=== PATIENT | male | born 1960 | race Caucasian/White ===

== ENCOUNTER 2020-02-03 16:37 | Emergency (ER) | payer OTHER ==
[2020-02-03 16:50] VITALS: BMI 25.9
[2020-02-03 17:29] LABS: BASO % 0.5 % (0-2.0); EOS % 2.4 % (0-4.5); HEMATOCRIT 37.5 % (35.4-49); HEMOGLOBIN 12.3 GM/dL (11.7-16.9); LYMPH % 30.6 % (8-40); MCH 28.5 pg (25.7-33.7); MCHC 32.8 g/dl (32.0-35.9); MEAN CELL VOLUME 86.9 fl (80-96); MEAN PLT VOLUME 8.6 fl (7.5-11.1); MONO % 6.9 % (3.8-10.2); NEUT % 59.6 % (42.8-82.8); PLATELET COUNT 193 K/MM3 (134-434); RBC 4.31 M/mm3 (4.00-5.60); RDW 13.7 % (11.9-15.9); WHITE BLOOD COUNT 6.8 K/mm3 (4.0-10.0)
[2020-02-03] MEDS ORDERED: ASPIRIN 81 MG CHEWABLE TABLETS PO ONE (17:30)
[2020-02-03] MEDS ORDERED: ACETAMINOPHEN 1000 MG/100 ML VIAL (NON FORMULARY) IVPB ONE (17:30)
[2020-02-03] MEDS ORDERED: ACETAMINOPHEN INJECTION 100 ML IVPB ONE (17:39)
[2020-02-03] MEDS ORDERED: ASPIRIN 81 MG CHEWABLE TABLETS ONE (17:39)
[2020-02-03 17:55] LABS: INR 1.05 (0.83-1.09); PROTHROMBIN TIME (PATIENT) 12.4 SEC (9.7-13.0)
[2020-02-03] MEDS ORDERED: ISOSORBIDE MONONITRATE 30 MG TAB.SR.24H (FP) PO SCH (18:00)
[2020-02-03] MEDS ORDERED: ISOSORBIDE MONONITRATE 60 MG TAB.SR.24H (FP) PO ONE (18:11)
[2020-02-03 18:13] LABS: ALBUMIN 3.8 g/dl (3.4-5.0); BILIRUBIN,TOTAL 0.3 mg/dL (0.2-1); BLOOD UREA NITROGEN 14.5 mg/dL (7-18); CALCIUM 8.5 mg/dL (8.5-10.1); POTASSIUM 3.6 mmol/L (3.5-5.1)
[2020-02-03 18:19] VITALS: BP 119/73; PULSE 67; TEMP 98
== END 2020-02-03 22:06 | disposition home or self-care (01) ==
LOC: JER 16:37
DX: R07.9 Chest pain, unspecified (principal)
CPT/HCPCS: 36415; 71045-TC-FY; 80053; 80061; 82550; 82553; 83690; 83721; 83735; 84484; 85025; 85610; 93005; 93010; 99285-25

== ENCOUNTER 2020-02-07 00:31 | Inpatient (IN) | payer OTHER ==
--- NOTE | 2020-02-07 00:41 | PDOC ---
History of Present Illness - General Stated Complaint: CHEST PAIN Time Seen by Provider: 02/07/20 00:41 History Source: Patient - History of Present Illness Initial Comments: 02/07/20 04:49 59M w/hx CAD, cardiac stenting on plavix, stable angina p/w acute onset chest pain while at rest. He reports sitting in front of the TV when he began to appreciate 5/10 midsternal chest pain, non-radiating, described as an ache. His usual pain with angina occurs with exercise or activity. He reports taking x1 sublingual nitro with symptom onset approx 2230, and another 1 hour later at 2330. He denies any pain at this time. He denies sob, vision changes, n/v/abdominal pain, confusion, or vision changes. 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 Cardiology: Dr. Hale Past History - Medical History Allergies/Adverse Reactions: Allergies Allergy/AdvReac Type Severity Reaction Status Date / Time No Known Allergies Allergy Verified 02/07/20 00:48 Home Medications: Ambulatory Orders Aspirin [ASA -] 81 mg PO DAILY 02/07/20 Atorvastatin Ca [Lipitor] 80 mg PO HS 02/07/20 Clopidogrel Bisulfate [Clopidogrel] 75 mg PO DAILY 02/07/20 Colchicine [Mitigare] 0.6 mg PO DAILY 02/07/20 Metoprolol Tartrate [Lopressor -] 12.5 mg PO DAILY 02/07/20 Nitroglycerin Sublingual [Nitrostat -] 0.4 mg SL PRN PRN 02/07/20 Cardiac Disorders: Yes (stent) COPD: No HTN: Yes Hypercholesterolemia: Yes - Surgical History Lung Surgery: No - Immunization History Immunization Up to Date: No - Psycho-Social/Smoking History Smoking Status: No Smoking History: Never smoked Have you smoked in the past 12 months: No Number of Cigarettes Smoked Daily: 0 Review of Systems - Review of Systems Able to Perform ROS?: Yes Comments:: 02/07/20 04:55 GENERAL/CONSTITUTIONAL: No fever or chills. No weakness. HEAD, EYES, EARS, NOSE AND THROAT: No change in vision. No ear pain or discharge. No sore throat. CARDIOVASCULAR: No chest pain or shortness of breath RESPIRATORY: No cough, wheezing, or hemoptysis. GASTROINTESTINAL: No nausea, vomiting, diarrhea or constipation. GENITOURINARY: No dysuria, frequency, or change in urination. MUSCULOSKELETAL: No joint or muscle swelling or pain. No neck or back pain. SKIN: No rash NEUROLOGIC: No headache, vertigo, loss of consciousness, or change in strength/sensation. ENDOCRINE: No increased thirst. No abnormal weight change HEMATOLOGIC/LYMPHATIC: No anemia, easy bleeding, or history of blood clots. ALLERGIC/IMMUNOLOGIC: No hives or skin allergy. *Physical Exam - Physical Exam 02/07/20 04:56 GENERAL: Awake, alert, and fully oriented, in no acute distress HEAD: No signs of trauma, normocephalic, atraumatic EYES: PERRLA, EOMI, sclera anicteric, conjunctiva clear ENT: Auricles normal inspection, hearing grossly normal, nares patent, oropharynx clear without exudates. Moist mucosa NECK: Normal ROM, supple, no lymphadenopathy, JVD, or masses LUNGS: No distress, speaks full sentences, clear to auscultation bilaterally HEART: Regular rate and rhythm, normal S1 and S2, no murmurs, rubs or gallops, peripheral pulses normal and equal bilaterally. ABDOMEN: Soft, nontender, normoactive bowel sounds. No guarding, no rebound. No masses EXTREMITIES : Normal inspection, Normal range of motion, no edema. No clubbing or cyanosis NEUROLOGICAL: Cranial nerves II through XII grossly intact. Normal speech, normal gait, no focal sensorimotor deficits SKIN: Warm, Dry, normal turgor, no rashes or lesions noted Heart Score/ECG Review - History History: Moderately suspicious - Electrocardiogram EKG: Normal - Age Age: 45-65 - Risk Factors Risk Factors Heart Score: Yes Positive family hx of cardiac disease Based on the list above the patient has:: 1-2 risk factors - Troponin Troponin: </= normal limit - Score Heart Score - Total: 3 ED Treatment Course - LABORATORY CBC & Chemistry Diagram: 02/07/20 01:10 02/07/20 01:10 Medical Decision Making - Medical Decision Making 02/07/20 04:58 59M w/hx angina, CAD s/p stenting on plavix p/w acute onset chest pain while at rest. Ddx unstable angina vs other ACS. Plan: CBC CMP EKG CXR Cardiac profile ASA Cardiology consult Dispo: Pending --- Case discussed with Dr. Montes. Plan for repeat troponin, evaluation for tele obs admission. Discharge - Discharge Information Problems reviewed: Yes Clinical Impression/Diagnosis: Chest pain Condition: Stable - Admission Yes - Follow up/Referral Referrals: Gaurav Chun [Primary Care Provider] - - Patient Discharge Instructions - Post Discharge Activity
[2020-02-07 00:48] VITALS: BMI 25.8
[2020-02-07 01:21] LABS: BASO % 0.8 % (0-2.0); EOS % 6.8 % (0-4.5); HEMATOCRIT 35.5 % (35.4-49); HEMOGLOBIN 11.9 GM/dL (11.7-16.9); LYMPH % 40.2 % (8-40); MCH 28.9 pg (25.7-33.7); MCHC 33.4 g/dl (32.0-35.9); MEAN CELL VOLUME 86.4 fl (80-96); MONO % 9.5 % (3.8-10.2); NEUT % 42.7 % (42.8-82.8); PLATELET COUNT 161 K/MM3 (134-434); RBC 4.11 M/mm3 (4.00-5.60); RDW 13.8 % (11.9-15.9); WHITE BLOOD COUNT 4.3 K/mm3 (4.0-10.0)
[2020-02-07 01:55] LABS: ALBUMIN 3.3 g/dl (3.4-5.0); ALK PHOS 75 U/L (45-117); ANION GAP 6 MMOL/L (8-16); BILIRUBIN,TOTAL 0.2 mg/dL (0.2-1); BLOOD UREA NITROGEN 12.9 mg/dL (7-18); CALCIUM 8.1 mg/dL (8.5-10.1); CHLORIDE 107 mmol/L (98-107); CO2 27 mmol/L (21-32); CREATININE 1.1 mg/dL (0.55-1.3); GLUCOSE,RANDOM 107 mg/dL (74-106); INR 1.02 (0.83-1.09); POTASSIUM 3.5 mmol/L (3.5-5.1); SGOT/AST 30 U/L (15-37); SGPT/ALT 46 U/L (13-61); SODIUM 140 mmol/L (136-145); TOT PROT 6.4 g/dl (6.4-8.2)
[2020-02-07 01:58] LABS: ACTIVATED PTT 26.6 SECONDS (25.2-36.5)
--- NOTE | 2020-02-07 02:24 | PDOC ---
Documentation entered by Julissa Bautista SCRIBE, acting as scribe for Radha Giles MD. Radha Giles MD: This documentation has been prepared by the marleenibeMichele Ana, SCRIBE, under my direction and personally reviewed by me in its entirety. I confirm that the documentation accurately reflects all work, treatment, procedures, and medical decision making performed by me. Attending Attestation - Resident Resident Name: MichelleAl - ED Attending Attestation I have performed the following: I have examined & evaluated the patient, The case was reviewed & discussed with the resident, I agree w/resident's findings & plan, Exceptions are as noted - HPI HPI: 02/07/20 00:41 Patient is a 59 year old male with a significant past medical history of HTN, GOUT, HLD, and RI with recent cardiac stenting who presents to the ED with chest pain since around 10:30pm tonight. Patient stated he was watching TV when the pain occurred in the center of his chest (pain does not move), he felt "weird", and his pressure started going up. Patient disclosed that approximately 10:50pm he took a Nitril pill, felt a bit alleviated, went to sleep, woke up around midnight with worsened pain, took another Nitril, then came to the ER. Patient stated he is on various medications and that he has had similar episodes like this recently - was in the ER on Wednesday. Patient denies: any previous heart attacks, racing heart, nausea, vomiting, change of vision, diarrhea. PCP: Dr. Chun Chemist Internship: Dr. Hale Allergies: NKDA - Physicial Exam PE: 02/07/20 02:24 wnwd 59 yo male experienced chest pain at rest tonight 02/07/20 02:25 head ncat neck supple lungs cta b/l cvs [id number] abdomen nontender skin warm and dry neuro axox3, ambulatory - Medical Decision Making 02/07/20 02:26 plan OBS telemetry Discharge - Discharge Information Problems reviewed: Yes Clinical Impression/Diagnosis: Chest pain Condition: Improved Disposition: HOME - Follow up/Referral - Patient Discharge Instructions - Post Discharge Activity
[2020-02-07] MEDS ORDERED: ASPIRIN 81 MG CHEWABLE TABLETS PO ONE (02:25)
[2020-02-07] MEDS ORDERED: ASPIRIN COATED 81 MG TABLET.EC ONE ×2 (02:30→09:13)
--- NOTE | 2020-02-07 06:22 | PN ---
Teaching Attending Note Name of Resident: Florentino Arce ATTENDING PHYSICIAN STATEMENT I saw and evaluated the patient. I reviewed the resident's note and discussed the case with the resident. I agree with the resident's findings and plan as documented. SUBJECTIVE: 59 y/o M w/PMHx of HTN, Gout, HLD and MT S/P PCI in 10/2019 on DAPT and compl iant. OBJECTIVE: VSS Card0 S1 S2 no m/r/g Ext moving all ext no edema or rashes Lungs CTA all lung parker Neuro non focal neuro exam Abd normoactive BS non tender soft Labs: Trop x 2 neg Otherwise grossly unremarkable ASSESSMENT AND PLAN: 59 y/o M w/PMHx of HTN, Gout, HLD and MT S/P PCI in 10/2019 on DAPT and compliant came in w/ chest pain at 10 pm and 12 am not relieved by nitro. Angina in setting of recent PCI ASA 81 mg daily Plavix 75 mg daily Tele monitoring EKG and Trop x3 q 4-6 hr Cardio consulted Metoprolol per home dose Add Imdur 30 mg daily NG 0.4 mg Q 5 min PRN C/P x 3 doses max HTN/HLD High intensity statin Metoprolol per home meds DVT Px: Lovenox SQ Diet NPO for now
--- NOTE | 2020-02-07 07:17 | HP ---
CHIEF COMPLAINT: chest pain PCP: HISTORY OF PRESENT ILLNESS: 59M w/ pmh of HTN, HLD, gout, CAD(sp LAD stent, at [facility] by Dr Dunn in October 2019) presenting to [facility] for complaint of chest pressure, feeling a "discomfort" at rest while watching TV, ~10:30pm. His BP went to SBP 160s at that time. Took a SLN that provided relief for one hour. Pain returned and he grew concerned and sought ED evaluation. Was seen last at [facility] on 02/02/19 for stabbing chest pain after playing [employer]. He was seen by Cardio(Meir) who r/o ACS and recommended adding Imdur to his regimen and possible Stress Test February 07. Patient endorses being compliant with this statin, BB, ASA, plavix since his October Stent. ER course was notable for: (1) HEART 3 (2) troponin neg x2 (3) EKG w/o ST changes (4) ED resident discussed with Kat who recommended admission for ACS r/o Recent Travel: denies PAST MEDICAL HISTORY: as above PAST SURGICAL HISTORY: wrist sx, testicular detorsion Social History: Smoking: denies Alcohol: occasional wine(1-2x/weekly) Drugs: denies Allergies No Known Allergies Allergy (Verified 02/07/20 00:48) HOME MEDICATIONS: Home Medications Medication Instructions Recorded Aspirin [ASA -] 81 mg PO DAILY 02/07/20 Atorvastatin Ca [Lipitor] 80 mg PO HS 02/07/20 Clopidogrel Bisulfate [Clopidogrel] 75 mg PO DAILY 02/07/20 Colchicine [Mitigare] 0.6 mg PO DAILY 02/07/20 Metoprolol Tartrate [Lopressor -] 12.5 mg PO DAILY 02/07/20 Nitroglycerin Sublingual 0.4 mg SL PRN PRN 02/07/20 [Nitrostat -] REVIEW OF SYSTEMS CONSTITUTIONAL: Absent: fever, chills, diaphoresis, generalized weakness, malaise, loss of appetite, weight change HEENT: Absent: rhinorrhea, nasal congestion, throat pain, throat swelling, difficulty swallowing, mouth swelling, ear pain, eye pain, visual changes CARDIOVASCULAR: chest pain/discomfort Absent: syncope, palpitations, irregular heart rate, lightheadedness, peripheral edema RESPIRATORY: Absent: cough, shortness of breath, dyspnea with exertion, orthopnea, wheezing, stridor, hemoptysis GASTROINTESTINAL: Absent: abdominal pain, abdominal distension, nausea, vomiting, diarrhea, constipation, melena, hematochezia GENITOURINARY: Absent: dysuria, frequency, urgency, hesitancy, hematuria, flank pain, genital pain MUSCULOSKELETAL: Absent: myalgia, arthralgia, joint swelling, back pain, neck pain SKIN: Absent: rash, itching, pallor HEMATOLOGIC/IMMUNOLOGIC: Absent: easy bleeding, easy bruising, lymphadenopathy, frequent infections ENDOCRINE: Absent: unexplained weight gain, unexplained weight loss, heat intolerance, cold intolerance NEUROLOGIC: Absent: headache, focal weakness or paresthesias, dizziness, unsteady gait, seizure, mental status changes, bladder or bowel incontinence PSYCHIATRIC: Absent: anxiety, depression, suicidal or homicidal ideation, hallucinations. PHYSICAL EXAMINATION Vital Signs - 24 hr 02/07/20 02/07/20 02/07/20 00:42 01:45 03:06 Temperature 98.6 F Pulse Rate 74 Pulse Rate [ 76 Right Radial] Respiratory 20 18 Rate Blood Pressure 130/82 Blood Pressure 149/85 [Left Arm] O2 Sat by Pulse 100 99 99 Oximetry (%) 02/07/20 06:00 Temperature 98.4 F Pulse Rate Pulse Rate [ 67 Right Radial] Respiratory 18 Rate Blood Pressure Blood Pressure 146/80 [Left Arm] O2 Sat by Pulse 99 Oximetry (%) GENERAL: Awake, alert, and fully oriented, in no acute distress. HEAD: NC/AT EYES: sclera anicteric, conjunctiva clear. No lid lag. EARS, NOSE, THROAT: Ears normal, nares patent, oropharynx clear without exudates. Moist mucous membranes. NECK: Normal range of motion, supple without lymphadenopathy, JVD, or masses. LUNGS: Breath sounds equal, clear to auscultation bilaterally. No wheezes, and no crackles. No accessory muscle use. HEART: Regular rate and rhythm, normal S1 and S2 without murmur, rub or gallop. ABDOMEN: Soft, nontender, not distended, normoactive bowel sounds, no guarding, no rebound MUSCULOSKELETAL: Normal range of motion at all joints. No bony deformities or tenderness. UPPER EXTREMITIES: 2+ pulses, warm, well-perfused. No cyanosis. No clubbing. No peripheral edema. LOWER EXTREMITIES: 2+ pulses, warm, well-perfused. No calf tenderness. No peripheral edema. NEUROLOGICAL: Normal speech. Laboratory Results - last 24 hr 02/07/20 02/07/20 02/07/20 01:10 01:10 01:10 WBC 4.3 RBC 4.11 Hgb 11.9 Hct 35.5 MCV 86.4 MCH 28.9 MCHC 33.4 RDW 13.8 Plt Count 161 MPV 8.0 Absolute Neuts (auto) 1.8 Neutrophils % 42.7 L D Lymphocytes % 40.2 H D Monocytes % 9.5 Eosinophils % 6.8 H D Basophils % 0.8 Nucleated RBC % 0 PT with INR 12.00 INR 1.02 PTT (Actin FS) 26.6 Sodium 140 Potassium 3.5 Chloride 107 Carbon Dioxide 27 Anion Gap 6 L BUN 12.9 Creatinine 1.1 Est GFR (CKD-EPI)AfAm 85.91 Est GFR (CKD-EPI)NonAf 74.12 POC Glucometer Random Glucose 107 H Calcium 8.1 L Total Bilirubin 0.2 AST 30 ALT 46 Alkaline Phosphatase 75 Creatine Kinase 136 Troponin I < 0.02 Total Protein 6.4 Albumin 3.3 L 02/07/20 02/07/20 01:10 04:25 WBC RBC Hgb Hct MCV MCH MCHC RDW Plt Count MPV Absolute Neuts (auto) Neutrophils % Lymphocytes % Monocytes % Eosinophils % Basophils % Nucleated RBC % PT with INR INR PTT (Actin FS) Sodium Potassium Chloride Carbon Dioxide Anion Gap BUN Creatinine Est GFR (CKD-EPI)AfAm Est GFR (CKD-EPI)NonAf POC Glucometer 107 Random Glucose Calcium Total Bilirubin AST ALT Alkaline Phosphatase Creatine Kinase Troponin I < 0.02 Total Protein Albumin ASSESSMENT/PLAN: 59M w/ pmh of HTN, HLD, gout, CAD(sp LAD stent, at [facility] by Dr Dunn in October 2019) presenting to [facility] for complaint of chest pressure, feeling a "discomfort" at rest while watching TV, ~10:30pm. Took a SLN that provided relief for one hour. Admitted for ACS r/o. #unstable angina --possibly ACS but no EKG changes or elevated troponin > HEART 3 > troponin neg x2 > EKG w/o ST changes - cw statin, BB, plavix, ASA - fu 3rd troponin - Cardio consult(Masctelli): --recs pending FEN - NS@100 - NPO, in case of stress test DVT PPX - lovenox Family Medical History Family History: Unremarkable Visit type - Emergency Visit Emergency Visit: Yes ED Registration Date: 02/07/20 Care time: The patient presented to the Emergency Department on the above date a nd was hospitalized for further evaluation of their emergent condition. - New Patient This patient is new to me today: Yes Date on this admission: 02/07/20 - Critical Care Critical Care patient: No ATTENDING PHYSICIAN STATEMENT I saw and evaluated the patient. I reviewed the resident's note and discussed the case with the resident. I agree with the resident's findings and plan as documented. SUBJECTIVE: OBJECTIVE: ASSESSMENT AND PLAN:
[2020-02-07] MEDS: SODIUM CHLORIDE 1,000 ML IV SCH (08:08)
[2020-02-07] MEDS ORDERED: POTASSIUM CHLORIDE TABS 20 MEQ TABLET.ER (FP) PO ONE ×2 (08:15→09:14)
[2020-02-07] MEDS ORDERED: METOPROLOL TARTRATE 25 MG TABLET (FP) ONE (09:13)
[2020-02-07] MEDS ORDERED: CLOPIDOGREL BISULFATE 75 MG TABLET (FP) ONE (09:14)
[2020-02-07] MEDS ORDERED: ENOXAPARIN NA (PORCINE) 40 MG/0.4 ML DISP.SYRIN SQ ONE (09:14)
[2020-02-07] MEDS: METOPROLOL TARTRATE 25 MG TABLET (FP) PO SCH (09:34)
[2020-02-07] MEDS: ASPIRIN COATED 81 MG TABLET.EC PO SCH (09:34)
[2020-02-07] MEDS: ENOXAPARIN NA (PORCINE) 40 MG/0.4 ML DISP.SYRIN SQ SCH (09:35)
[2020-02-07] MEDS: CLOPIDOGREL BISULFATE 75 MG TABLET (FP) PO SCH (09:35)
--- NOTE | 2020-02-07 10:36 | EKG ---
Test Reason : Blood Pressure : / mmHG Vent. Rate : 070 BPM Atrial Rate : 070 BPM P-R Int : 144 ms QRS Dur : 076 ms QT Int : 386 ms P-R-T Axes : 052 020 045 degrees QTc Int : 416 ms NORMAL SINUS RHYTHM NORMAL ECG WHEN COMPARED WITH ECG OF 03-FEB-2020 16:43, NO SIGNIFICANT CHANGE WAS FOUND Confirmed by Tramaine Celeste MD ([id number]) on 02/07/2020 10:36:11 AM Referred By: Confirmed By:Tramaine Celeste MD
--- NOTE | 2020-02-07 11:54 | HOSP ---
Subjective - Review of Symptoms Events since last encounter: Seen and examine on stretcher in ED. Cardiovascular: Yes: Chest Pain Physical Examination Vital Signs: Vital Signs Temperature 98.7 F 02/07/20 07:38 Pulse Rate 64 02/07/20 10:28 Respiratory Rate 18 02/07/20 10:28 Blood Pressure 116/73 02/07/20 10:28 O2 Sat by Pulse Oximetry (%) 98 02/07/20 10:28 Constitutional: Yes: Well Nourished, No Distress, Calm Eyes: Yes: WNL, Conjunctiva Clear, EOM Intact HENT: Yes: WNL, Atraumatic, Normocephalic Neck: Yes: WNL, Supple, Trachea Midline Cardiovascular: Yes: WNL, Regular Rate and Rhythm Respiratory: Yes: WNL, Regular, CTA Bilaterally Gastrointestinal: Yes: WNL, Normal Bowel Sounds ...Rectal Exam: Yes: Deferred Renal/: Yes: WNL Breast(s): Yes: WNL Musculoskeletal: Yes: WNL Extremities: Yes: WNL Edema: No Peripheral Pulses WNL: Yes Peripheral Pulses: Left Radial: 2+, Right Radial: 2+, Left Doralis Pedis: 2+, Right Dorsalis Pedis: 2+, Left Femoral: 2+, Right Femoral: 2+ Integumentary: Yes: WNL Neurological: Yes: WNL, Alert, Oriented ...Motor Strength: WNL Psychiatric: Yes: WNL Labs: CBC, BMP 02/07/20 01:10 02/07/20 01:10 CXR no effusion /infiltrates Hospitalist Encounter Assessment: Seen and examined in ED. No further c/o chest pain. COVID PCR pending-no infiltrates on CXR cardiology consultation pending troponins negative EKG w/o ST changes stress test pending when COVID resulted c/w plavix, ASA lovenox for DVt proph NPO past mn for possible stress test full note to follow tomorrow
--- NOTE | 2020-02-07 16:52 | CON.CARD ---
Consult Consult Specialty:: Cardiology Reason for Consultation:: chest pain - History of Present Illness History of Present Illness: 59 presenting with crescendo angina x 1 week and 2 episodes of CP at rest the night of the admission partially relived by SL NTG PMH PCI BARBIE Proximal LAD 95% 10/27/19 @ [facility] by Dr. Dunn Left Main ----Luminal irregularities Left Anterior Descending ---Proximal 95% stenosis ---Distal 40% stenosis Circumflex ---Distal 40% stenosis RCA ----Mid 30% stenosis RT PDA ----Ostial 30% stenosis LV Findings ----LVEDP: 6 mmHg ----LVEF Status: LV Gram - 70% EF ----Normal wall motion Ongoing medical problems Hypertension Hyperlipidemia Angina October 2019 - History Source History Provided By: Patient, Medical Record - Past Medical History Cardio/Vascular: Yes: CAD, HTN, Hyperlipdemia - Alcohol/Substance Use Hx Alcohol Use: No - Smoking History Smoking history: Never smoked Have you smoked in the past 12 months: No Aproximately how many cigarettes per day: 0 - Social History Usual Living Arrangement: With Spouse Home Medications - Allergies Allergies/Adverse Reactions: Allergies Allergy/AdvReac Type Severity Reaction Status Date / Time No Known Allergies Allergy Verified 02/07/20 00:48 - Home Medications Home Medications: Ambulatory Orders Aspirin [ASA -] 81 mg PO DAILY 02/07/20 Atorvastatin Ca [Lipitor] 80 mg PO HS 02/07/20 Clopidogrel Bisulfate [Clopidogrel] 75 mg PO DAILY 02/07/20 Colchicine [Mitigare] 0.6 mg PO DAILY 02/07/20 Metoprolol Tartrate [Lopressor -] 12.5 mg PO DAILY 02/07/20 Nitroglycerin Sublingual [Nitrostat -] 0.4 mg SL PRN PRN 02/07/20 Review of Systems - Review of Systems Constitutional: reports: No Symptoms Eyes: reports: No Symptoms HENT: reports: No Symptoms Neck: reports: No Symptoms Cardiovascular: reports: Chest Pain Respiratory: reports: No Symptoms Gastrointestinal: reports: No Symptoms Genitourinary: reports: No Symptoms Breasts: reports: No Symptoms Reported Musculoskeletal: reports: No Symptoms Integumentary: reports: No Symptoms Neurological: reports: No Symptoms Endocrine: reports: No Symptoms Hematology/Lymphatic: reports: No Symptoms Psychiatric: reports: No Symptoms Vital Signs: Vital Signs Temperature 98 F 02/07/20 16:34 Pulse Rate 72 02/07/20 16:34 Respiratory Rate 18 02/07/20 16:34 Blood Pressure 128/65 02/07/20 16:34 O2 Sat by Pulse Oximetry (%) 99 02/07/20 16:34 Constitutional: Yes: Well Nourished, No Distress, Calm Eyes: Yes: WNL, Conjunctiva Clear, EOM Intact HENT: Yes: WNL, Atraumatic, Normocephalic Neck: Yes: WNL, Supple, Trachea Midline Respiratory: Yes: WNL, Regular, CTA Bilaterally Gastrointestinal: Yes: WNL, Normal Bowel Sounds Renal/: Yes: WNL Cardiovascular: Yes: WNL, Regular Rate and Rhythm Musculoskeletal: Yes: WNL Extremities: Yes: WNL Integumentary: Yes: WNL Neurological: Yes: WNL, Alert, Oriented ...Motor Strength: WNL Psychiatric: Yes: WNL, Alert, Oriented - Other Data Labs, Other Data: CBC, BMP 02/07/20 01:10 02/07/20 01:10 INR, PTT INR 1.02 (0.83-1.09) 02/07/20 01:10 Troponin, BNP 02/07/20 02/07/20 02/07/20 01:10 04:25 09:57 Troponin I < 0.02 < 0.02 < 0.02 Troponin, BNP 02/07/20 02/07/20 02/07/20 01:10 04:25 09:57 Troponin I < 0.02 < 0.02 < 0.02 Imaging - Results Chest X-ray: Image Reviewed (wnl) EKG: Image Reviewed (sr wnl) Problem List - Problems (1) Chest pain Code(s): R07.9 - CHEST PAIN, UNSPECIFIED (2) Acute coronary syndrome Code(s): I24.9 - ACUTE ISCHEMIC HEART DISEASE, UNSPECIFIED (3) Hyperlipidemia Code(s): E78.5 - HYPERLIPIDEMIA, UNSPECIFIED Assessment/Plan CP sx crescendo angina CE neg x 3 EKG wnl Plan asa plavix cont home meds MIBI ST in AM Telemetry dvt plx
[2020-02-07] MEDS: ISOSORBIDE MONONITRATE 30 MG TAB.SR.24H (FP) PO SCH (17:38)
[2020-02-07] MEDS: amLODIPine BESYLATE 2.5 MG TABLET (FP) PO SCH (17:48)
[2020-02-07] MEDS ORDERED: ATORVASTATIN CA 80 MG TABLET (FP) PO SCH (22:00)
[2020-02-08 07:29] LABS: BASO % 0.4 % (0-2.0); EOS % 5.5 % (0-4.5); HEMATOCRIT 35.4 % (35.4-49); HEMOGLOBIN 11.5 GM/dL (11.7-16.9); MCH 28.1 pg (25.7-33.7); MCHC 32.6 g/dl (32.0-35.9); MEAN CELL VOLUME 86.2 fl (80-96); MONO % 8.8 % (3.8-10.2); NEUT % 55.3 % (42.8-82.8); PLATELET COUNT 161 K/MM3 (134-434); RDW 13.5 % (11.9-15.9); WHITE BLOOD COUNT 5.5 K/mm3 (4.0-10.0)
[2020-02-08 07:37] LABS: BLOOD UREA NITROGEN 12.8 mg/dL (7-18); CALCIUM 8.7 mg/dL (8.5-10.1); PHOSPHOROUS 3.4 mg/dL (2.5-4.9); POTASSIUM 3.9 mmol/L (3.5-5.1)
--- NOTE | 2020-02-08 08:05 | PN ---
Progress Note, Physician History of Present Illness: 59M w/ pmh of HTN, HLD, gout, CAD(sp LAD stent, at [facility] by Dr Dunn in October 2019) presenting to [facility] for complaint of chest pressure - Current Medication List Current Medications: Active Medications Amlodipine Besylate (Norvasc -) 2.5 mg PO DAILY [facility] Last Admin: 02/07/20 17:48 Dose: 2.5 mg Documented by: Aspirin (Ecotrin -) 81 mg PO DAILY [facility] Last Admin: 02/07/20 09:34 Dose: 81 mg Documented by: Atorvastatin Calcium (Lipitor -) 80 mg PO HS [facility] Last Admin: 02/07/20 22:08 Dose: 80 mg Documented by: Clopidogrel Bisulfate (Plavix -) 75 mg PO DAILY [facility] Last Admin: 02/07/20 09:35 Dose: 75 mg Documented by: Enoxaparin Sodium (Lovenox -) 40 mg SQ DAILY [facility] Last Admin: 02/07/20 09:35 Dose: 40 mg Documented by: Sodium Chloride (Normal Saline -) 1,000 mls @ 100 mls/hr IV ASDIR [facility] Last Admin: 02/07/20 08:08 Dose: 100 mls/hr Documented by: Isosorbide Mononitrate (Imdur -) 30 mg PO DAILY [facility] Last Admin: 02/07/20 17:38 Dose: 30 mg Documented by: Metoprolol Tartrate (Lopressor -) 12.5 mg PO DAILY [facility] Last Admin: 02/07/20 09:34 Dose: Not Given Documented by: - Objective Vital Signs: Vital Signs Temperature 98.2 F 02/08/20 00:00 Pulse Rate 55 L 02/08/20 04:00 Respiratory Rate 14 02/08/20 04:00 Blood Pressure 95/50 L 02/08/20 04:00 O2 Sat by Pulse Oximetry (%) 99 02/07/20 21:00 Labs: CBC, BMP 02/08/20 05:45 02/08/20 05:45 INR, PTT INR 1.02 (0.83-1.09) 02/07/20 01:10 Problem List - Problems (1) HTN (hypertension) Code(s): I10 - ESSENTIAL (PRIMARY) HYPERTENSION (2) Gout Code(s): M10.9 - GOUT, UNSPECIFIED (3) Stented coronary artery Code(s): Z95.5 - PRESENCE OF CORONARY ANGIOPLASTY IMPLANT AND GRAFT (4) Prophylactic measure Code(s): Z29.9 - ENCOUNTER FOR PROPHYLACTIC MEASURES, UNSPECIFIED (5) Chest pain Code(s): R07.9 - CHEST PAIN, UNSPECIFIED (6) Hyperlipidemia Code(s): E78.5 - HYPERLIPIDEMIA, UNSPECIFIED (7) Person under investigation for COVID-19 Code(s): Z20.828 - CONTACT W AND EXPOSURE TO [facility] VIRAL COMMUNICABLE DISEASES
[2020-02-08] MEDS ORDERED: PT OWN MED DRAWER 7, Y5N ONE (08:58)
[2020-02-08] MEDS: ASPIRIN COATED 81 MG TABLET.EC PO SCH (09:05)
[2020-02-08] MEDS: ISOSORBIDE MONONITRATE 30 MG TAB.SR.24H (FP) PO SCH (09:05)
[2020-02-08] MEDS: ENOXAPARIN NA (PORCINE) 40 MG/0.4 ML DISP.SYRIN SQ SCH (09:06)
[2020-02-08] MEDS: METOPROLOL TARTRATE 25 MG TABLET (FP) PO SCH (09:06)
[2020-02-08] MEDS: CLOPIDOGREL BISULFATE 75 MG TABLET (FP) PO SCH (09:07)
--- NOTE | 2020-02-08 09:11 | PN ---
Progress Note, Physician Chief Complaint: Pt A&Ox3; no chest pain, palpitations, or dyspnea. Anxious. History of Present Illness: Mr. Tanner is a 59 year old male with a significant past medical history of HTN, GOUT, HLD, with recent cardiac stenting (99% stenosis of proximal LAD-->coronary stent done at [facility]), anxiety, who presents to the ED with chest pain since around 10:30pm tonight. Patient stated he was watching TV when the pain occurred in the center of his chest (pain does not move), he felt "weird", and his pressure started going up. Patient disclosed that approximately 10:50pm he took a Nitro pill, felt a bit alleviated, went to sleep, woke up around midnight with worsened pain, took another Nitro, then came to the ER. Patient stated he is on various medications (including Imdur 30 mg daily), and that he has had similar episodes like this recently - was in the ER on Wednesday for exertional chest pain. - Current Medication List Current Medications: Active Medications Amlodipine Besylate (Norvasc -) 2.5 mg PO DAILY [facility] Last Admin: 02/07/20 17:48 Dose: 2.5 mg Documented by: Aspirin (Ecotrin -) 81 mg PO DAILY [facility] Last Admin: 02/08/20 09:05 Dose: 81 mg Documented by: Atorvastatin Calcium (Lipitor -) 80 mg PO HS [facility] Last Admin: 02/07/20 22:08 Dose: 80 mg Documented by: Clopidogrel Bisulfate (Plavix -) 75 mg PO DAILY [facility] Last Admin: 02/08/20 09:07 Dose: 75 mg Documented by: Enoxaparin Sodium (Lovenox -) 40 mg SQ DAILY [facility] Last Admin: 02/08/20 09:06 Dose: 40 mg Documented by: Sodium Chloride (Normal Saline -) 1,000 mls @ 100 mls/hr IV ASDIR [facility] Last Admin: 02/07/20 08:08 Dose: 100 mls/hr Documented by: Isosorbide Mononitrate (Imdur -) 30 mg PO DAILY [facility] Last Admin: 02/08/20 09:05 Dose: 30 mg Documented by: Metoprolol Tartrate (Lopressor -) 12.5 mg PO DAILY [facility] Last Admin: 02/08/20 09:06 Dose: Not Given Documented by: - Objective Vital Signs: Vital Signs Temperature 98.2 F 02/08/20 00:00 Pulse Rate 58 L 02/08/20 08:00 Respiratory Rate 16 02/08/20 08:00 Blood Pressure 120/62 02/08/20 08:00 O2 Sat by Pulse Oximetry (%) 99 02/07/20 21:00 Constitutional: Yes: Anxious Eyes: Yes: WNL Labs: CBC, BMP 02/08/20 05:45 02/08/20 05:45 INR, PTT INR 1.02 (0.83-1.09) 02/07/20 01:10 Assessment/Plan CAD: hx 99% proximal LAD stent-->stent 10/2019 CP sx crescendo angina CE neg x 3 EKG wnl Plan Continue asa and plavix (started 10/2019 for proximal LAD stent) Add amlodipine for HTN, vasospasm. MIBI Stress (Lab decision: Carlos as COVID status pending) today Telemetry dvt plx
[2020-02-08] MEDS: SODIUM CHLORIDE 1,000 ML IV SCH (09:14)
[2020-02-08] MEDS: amLODIPine BESYLATE 2.5 MG TABLET (FP) PO SCH (09:54)
[2020-02-08] MEDS ORDERED: REGADENOSON 0.4 MG/5 ML PRE-FILLED SYRINGE IVPUSH ONE ×2 (10:44→11:30)
[2020-02-08] MEDS ORDERED: SODIUM CHLORIDE 0.9% 250 ML INFUS.BAG IV ONE (12:15)
[2020-02-08 14:16] VITALS: BP 118/66; PULSE 72
[2020-02-08 15:12] VITALS: TEMP 98.6
--- NOTE | 2020-02-08 15:18 | DS ---
Physical Exam: SUBJECTIVE: Patient seen and examined 59M w/ pmh of HTN, HLD, gout, CAD(sp LAD stent, at [facility] by Dr Dunn in October 2019) presenting to [facility] for complaint of chest pressure. Stress test was negative and is stable for discharge with cardiology f/u OBJECTIVE: Vital Signs Period Temp Pulse Resp BP Sys/Andrews Pulse Ox Last 24 Hr 98 F-98.6 F 55-74 14-18 95-131/50-83 99-99 PHYSICAL EXAM GENERAL: The patient is awake, alert, and fully oriented, in no acute distress. HEAD: Normal with no signs of trauma. EYES: PERRL, extraocular movements intact, sclera anicteric, conjunctiva clear. ENT: Ears normal, nares patent, oropharynx clear without exudates, moist mucous membranes. NECK: Trachea midline, full range of motion, supple. LUNGS: Breath sounds equal, clear to auscultation bilaterally, no wheezes, no crackles, no accessory muscle use. HEART: Regular rate and rhythm, S1, S2 without murmur, rub or gallop. ABDOMEN: Soft, nontender, nondistended, normoactive bowel sounds, no guarding, no rebound, no hepatosplenomegaly, no masses. EXTREMITIES: 2+ pulses, warm, well-perfused, no edema. NEUROLOGICAL: Cranial nerves II through XII grossly intact. Normal speech, gait not observed. PSYCH: Normal mood, normal affect. SKIN: Warm, dry, normal turgor, no rashes or lesions noted. LABS Laboratory Results - last 24 hr 02/08/20 02/08/20 02/08/20 05:45 05:45 05:45 WBC 5.5 RBC 4.10 Hgb 11.5 L Hct 35.4 MCV 86.2 MCH 28.1 MCHC 32.6 RDW 13.5 Plt Count 161 MPV 9.0 D Absolute Neuts (auto) 3.0 Neutrophils % 55.3 D Lymphocytes % 30.0 D Monocytes % 8.8 Eosinophils % 5.5 H Basophils % 0.4 Nucleated RBC % 0 D-Dimer Sodium 141 Potassium 3.9 Chloride 106 Carbon Dioxide 29 Anion Gap 5 L BUN 12.8 Creatinine 1.0 Est GFR (CKD-EPI)AfAm 96.40 Est GFR (CKD-EPI)NonAf 83.18 Random Glucose 88 Calcium 8.7 Phosphorus 3.4 Magnesium 2.0 Ferritin 193.5 LD Total 131 C-Reactive Protein < 0.3 02/08/20 05:45 WBC RBC Hgb Hct MCV MCH MCHC RDW Plt Count MPV Absolute Neuts (auto) Neutrophils % Lymphocytes % Monocytes % Eosinophils % Basophils % Nucleated RBC % D-Dimer < 215 Sodium Potassium Chloride Carbon Dioxide Anion Gap BUN Creatinine Est GFR (CKD-EPI)AfAm Est GFR (CKD-EPI)NonAf Random Glucose Calcium Phosphorus Magnesium Ferritin LD Total C-Reactive Protein HOSPITAL COURSE: Date of Admission:02/07/20 Date of Discharge: 02/08/20 Seen and examined. No further c/o chest pain. Stress test negative. Imdur and norvasc started. Follow up with cardiology If pain re-occurs pt is instructed to go to [facility] for cariac cath-Dr Kimball ([place]) COVID PCR pending-no infiltrates on CXR. Continue to self quarantine until resulted-low suspicion troponins negative x 3 EKG w/o ST changes c/w plavix, ASA Stable for dc to home with f/u Minutes to complete discharge: 35 Discharge Summary Problems reviewed: Yes Reason For Visit: CHEST PAIN Current Active Problems Chest pain (Acute) Gout (Acute) HTN (hypertension) (Acute) Person under investigation for COVID-19 (Acute) Prophylactic measure (Acute) Stented coronary artery (Acute) Condition: Improved - Instructions Diet, Activity, Other Instructions: DISCHARGE YOUR VISIT You came to the hospital because were having chest pain. A stress test was done and there was no ischemia (decreased blood flow) in the heart. 2 new medications were given AMLODOPINE/NORVASC IMDUR/ISORSOBIDE Continue to take these. If the Imdur is causing a head ache take tylenol 1/2 prior to taking. If the pain re-occurs go straight to the ED at [facility] at [address] [place] [address] Kimball ([facility] crimping machine operator) will perform a cardiac catheterization. His number is attached in the summary. Call him (even if it off hours-he will be available by service) and tell him you are going to the ED at [place]. The COVID test is still pending-if you do not receive a call back-THE TEST IS NEGATIVE. Continue to maintain social distance and wear a mask MEDICATIONS Please continue to take your home medications as prescribed. There was some changes-see attached list. DIET Continue your home diet ADDITIONAL CARE Please make an appointment to see your primary care provider, 2 week from today. ADDITIONAL INFORMATION Please call 911 or come directly to the emergency department if you experience unusual headache, vision change, shortness of breath, chest pain, numbness, tingling, loss of alertness/awareness, loss of function, unusual bleeding or any alarming symptoms. Thank you for allowing me to care for you. Espinoza Moreira, [facility], [facility] [phone] Referrals: Robin Montes MD [Staff Physician] - Amol Ruiz MD [Staff Physician] - Gaurav Chun [Primary Care Provider] - Disposition: HOME - Home Medications Comprehensive Discharge Medication List: Ambulatory Orders RX: Aspirin [ASA -] 81 mg PO DAILY 02/07/20 RX: Atorvastatin Ca [Lipitor] 80 mg PO HS 02/07/20 RX: Clopidogrel Bisulfate [Clopidogrel] 75 mg PO DAILY 02/07/20 RX: Colchicine [Mitigare] 0.6 mg PO DAILY 02/07/20 RX: Metoprolol Tartrate [Lopressor -] 12.5 mg PO DAILY 02/07/20 RX: Nitroglycerin Sublingual [Nitrostat -] 0.4 mg SL PRN PRN 02/07/20 Amlodipine Besylate [Norvasc -] 5 mg PO DAILY #30 tablet 02/08/20 RX: Aspirin Coated [Ecotrin -] 81 mg PO DAILY tablet.ec 02/08/20 RX: Atorvastatin Ca [Lipitor] 80 mg PO HS tablet 02/08/20 RX: Clopidogrel Bisulfate [Plavix -] 75 mg PO DAILY tablet 02/08/20 RX: Isosorbide Mononitrate [Imdur -] 30 mg PO DAILY #30 tab.sr.24h 02/08/20 RX: Metoprolol Tartrate [Lopressor -] 12.5 mg PO DAILY tablet 02/08/20 Problem List - Problems (1) HTN (hypertension) Code(s): I10 - ESSENTIAL (PRIMARY) HYPERTENSION (2) Gout Code(s): M10.9 - GOUT, UNSPECIFIED (3) Stented coronary artery Code(s): Z95.5 - PRESENCE OF CORONARY ANGIOPLASTY IMPLANT AND GRAFT (4) Prophylactic measure Code(s): Z29.9 - ENCOUNTER FOR PROPHYLACTIC MEASURES, UNSPECIFIED (5) Chest pain Code(s): R07.9 - CHEST PAIN, UNSPECIFIED (6) Hyperlipidemia Code(s): E78.5 - HYPERLIPIDEMIA, UNSPECIFIED (7) Person under investigation for COVID-19 Code(s): Z20.828 - CONTACT W AND EXPOSURE TO OTH VIRAL COMMUNICABLE DISEASES This patient is new to me today: No Emergency Visit: Yes ED Registration Date: 02/07/20 Care time: The patient presented to the Emergency Department on the above date and was hospitalized for further evaluation of their emergent condition. Critical Care patient: No - Discharge Referral Referred to [facility] Med P.C.: No
== END 2020-02-08 16:15 | disposition home or self-care (01) | DRG 313 ==
LOC: JER 00:31 → JERBED 05:34 → OBSVTOIN 07:15 → JICU 16:49
PROVIDERS: ADMIT Internal Medicine; ATTEND Nurse Practitioner Acute Care
DX: R07.89 Other chest pain (principal); I25.10 Atherosclerotic heart disease of native coronary artery without angina pectoris; I10 Essential (primary) hypertension; M10.9 Gout, unspecified; E78.5 Hyperlipidemia, unspecified; I25.2 Old myocardial infarction; Z98.61 Coronary angioplasty status
CPT/HCPCS: 36415; 71045-TC-FY; 78452-TC; 80048; 80053; 82550; 82728; 82962; 83615; 83735; 84100; 84484; 85025; 85379; 85610; 85730; 86140; 93005; 93010; 93017; 99285-25; A9502; G0378; J2785; U0003